=== PATIENT | male | born 1980 | race Caucasian/White ===

== ENCOUNTER 2016-09-26 09:40 | Inpatient (IN) | payer OTHER ==
--- NOTE | 2016-09-26 09:59 | EDPHY ---
HPI/HX/ROS/PE/MDM Narrative: CHIEF COMPLAINT: Chest pain, auditory hallucinations HPI: This patient is a 36 year old male who presents to the Emergency Department with complaints of chronic chest pain and auditory hallucinations. His auditory hallucinations first presented one week prior to arrival. He reports that he has had voices in his head that are "microbial aliens" telling him that "all is not right in the world, and I should kill myself." It is unclear if he has taken or is currently taking medications for this complaint. The patient also describes chest pain which he states is ongoing. It appears that he may have a history of coronary artery disease with stenting as her refers to a procedure requiring catheterization through the groin. Further history regarding his chest pain and cardiac history is unobtainable secondary to his psychosis. REVIEW OF SYSTEMS: Aside from elements discussed in the HPI, a comprehensive 10-point review of systems was reviewed and is negative. PMH: Cardiac history, unspecified. Unknown mental health history. SOCIAL HISTORY: Non-contributory PHYSICAL EXAM: General:Patient is alert, in no acute distress. ENT:Eyes are normal to inspection. ENT inspection normal. Neck: Normal inspection. Full range of motion. Respiratory:No respiratory distress. Breath sounds normal bilaterally. Cardiovascular: Regular rate and rhythm. Strong peripheral pulses. Normal cap refill. Abdomen:The abdomen is obese, nontender to palpation. There are no peritoneal signs. There are normal bowel sounds. Back: Normal to inspection. No tenderness to palpation. Skin: Normal color. No rash. Warm and dry. Extremities: Normal appearance. Full range of motion. Neuro: Oriented x3. Normal motor function. Normal sensory function. Psych: Responding to internal stimuli. (Cheko Gutierrez) ED Course: EKG INTERPRETATION: Three EKGs were ordered and interpreted by myself. Please see [employer] system for official reading. There are no old EKGs available for comparison. ED COURSE: This is a 36-year-old male with unclear cardiac history and unclear mental health history who presents with complaints of auditory hallucinations and increasing chest pain over the past few days. He provides an inconsistent and unclear history secondary to his psychosis; he is responding to internal stimuli while examined. Will proceed with EKG, chest x-ray, labs including troponin for med clear prior to proceeding to treat mental health concerns. I attempted to access records from [facility] where the patient allegedly was seen recently for cardiac complaints. The patient is unwilling to release these records at this time. Labs obtained. Troponin is elevated at 0.496. Repeat EKG ordered. Repeat EKG continues to show no ST/T elevations. 1143: I discussed the case with Carol from [facility]. 1149: Consultation with Dr. Sebastián Guerra, analytical sciences director with [facility], who recommends a repeat troponin and further observation. The patient has agreed to release his records from [facility]. We are awaiting the faxed records. 1240: Repeat troponin is elevated at 0.741. [facility] has been paged. Will proceed with third repeat EKG. 1246: I discussed the repeat troponin levels with Carol from [facility] who will discuss next steps with Dr. Guerra. 1300: Consultation with Dr. Sebastián Guerra, cardiology. We are continuing to await faxed medical records from [facility]. 1315: Medical records obtained from [facility]. The patient was seen in the [facility] Emergency Department on 09/23 and was admitted and assessed prior to discharge on 09/24. His troponin remained stable throughout his admission at 0.04. He was also complaining of suicidal ideation at that time. Additional medical history obtained: Bipolar disorder, diabetes type II, morbid obesity, CAD with stenting x2. [facility] was unable to obtain his medical records from [place]. Additional social history obtained: Recently moved from [place] on 09/20. Currently homeless. 1333: Dr. Sebastián Guerra at bedside. 1350: Following bedside examination, Dr. Guerra recommends that we proceed with echocardiography. (Cheko Gutierrez) MDM: This patient presents with psychosis, with additional complaint of chest pain. His troponin was surprisingly positive and was rapid cycled. The patient has been evaluated by Dr. Guerra - he does not want to take the patient to the mobile home laborer at this point or admit him. At this point I do not think the patient is medically clear. I have signed the patient out to Dr. Devlin pending Echo and cardiology decision. (Cheko Gutierrez) 4:30 p.m. I spoke with Dr. Sebastián Guerra who has evaluated the patient's echocardiogram. 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 He recommends we admit the patient to the hospitalist service and complete a stress Lexiscan in the morning. The patient is currently refusing any invasive treatment. His EKG is unchanged from yesterday at [facility]. His troponins there yesterday were 0.4 x 2. Spoke to the hospital service will admit. (Aidan Devlin) - Data Points Imaging Results: Imaging Impressions Chest X-Ray 09/26/16 09:56 Impression: 1. Hypoventilatory chest with peribronchial thickening that could be related to fluid overload or bronchitis. 2. Anterior reduction at T12, possibly congenital or posttraumatic (age indeterminate). Laboratory Results: Laboratory Results 09/26/16 10:00 09/26/16 10:00 09/26/16 09/26/16 09/26/16 11:58 10:00 10:00 WBC 10.59 10^3/uL H 10^3/uL (3.80-9.50) RBC 5.33 10^6/uL 10^6/uL (4.40-6.38) Hgb 16.4 g/dL g/dL (13.7-17.5) Hct 46.4 % % (40.0-51.0) MCV 87.1 fL fL (81.5-99.8) MCH 30.8 pg pg (27.9-34.1) MCHC 35.3 g/dL g/dL (32.4-36.7) RDW 12.7 % % (11.5-15.2) Plt Count 228 10^3/uL 10^3/uL (150-400) MPV 10.2 fL fL (8.7-11.7) Neut % (Auto) 63.0 % % (39.3-74.2) Lymph % (Auto) 28.6 % % (15.0-45.0) [place] % (Auto) 6.4 % % (4.5-13.0) Eos % (Auto) 0.9 % % (0.6-7.6) Baso % (Auto) 0.8 % % (0.3-1.7) Nucleat RBC Rel Count 0.0 % % (0.0-0.2) Absolute Neuts (auto) 6.66 10^3/uL H 10^3/uL (1.70-6.50) Absolute Lymphs (auto) 3.03 10^3/uL H 10^3/uL (1.00-3.00) Absolute Monos (auto) 0.68 10^3/uL 10^3/uL (0.30-0.80) Absolute Eos (auto) 0.10 10^3/uL 10^3/uL (0.03-0.40) Absolute Basos (auto) 0.09 10^3/uL 10^3/uL (0.02-0.10) Absolute Nucleated RBC 0.00 10^3/uL 10^3/uL (0-0.01) Immature Gran % 0.3 % % (0.0-1.1) Immature Gran # 0.03 10^3/uL 10^3/uL (0.00-0.10) Sodium 140 mEq/L mEq/L (134-144) Potassium 4.2 mEq/L mEq/L (3.5-5.2) Chloride 106 mEq/L mEq/L (97-110) Carbon Dioxide 21 mEq/l L mEq/l (22-31) Anion Gap 13 mEq/L mEq/L (8-16) BUN 13 mg/dL mg/dL (7-23) Creatinine 0.7 mg/dL mg/dL (0.7-1.3) Estimated GFR > 60 Glucose 261 mg/dL H mg/dL (70-100) Calcium 9.4 mg/dL mg/dL (8.5-10.4) Troponin I 0.741 ng/mL H ng/mL 0.490 ng/mL H ng/mL (0-0.034) (0-0.034) Medications Given: Discontinued Medications Perflutren Lipid Microsphere (Definity) 1.1 mg IV ONCALL ONE Stop: 09/26/16 14:46 Last Admin: 09/26/16 15:03 Dose: 1.1 mg General Time Seen by Provider: 09/26/16 09:54 Initial Vital Signs: Initial Vital Signs Temperature (C) 36.6 C 09/26/16 09:47 Heart Rate 104 H 09/26/16 09:47 Respiratory Rate 18 09/26/16 09:47 Blood Pressure 136/88 H 09/26/16 09:47 O2 Sat (%) 97 09/26/16 09:47 O2 Delivery Mode Nasal Cannula O2 (L/minute) 2 Allergies/Adverse Reactions: haloperidol [From Haldol] Allergy (Intermediate, Verified 09/26/16 09:46) spasms,projectile vomiting Sulfa (Sulfonamide Antibiotics) Allergy (Intermediate, Verified 09/26/16 09:46) Hives Home Medications: Medication Instructions Recorded NK [No Known Home Meds] 09/26/16 Departure - Departure Disposition: [facility] Acute Clinical Impression: Acute psychosis Chest pain Qualifiers: Chest pain type: unspecified Qualified Code(s): R07.9 - Chest pain, unspecified Condition: Fair Referrals: NONE *PRIMARY CARE P,. [Primary Care Provider] - As per Instructions Report Scribed for: Cheko Gutierrez Report Scribed by: Margo Gill Date of Report: 09/26/16 Time of Report: 09:59 Physician Review and Approval Statement: Portions of this note were transcribed by an ED scribe. I personally performed the history, physical exam, and medical decision making; and confirm the accuracy of the information in the transcribed note.
[2016-09-26 10:17] LABS: % IMMATURE GRANULYOCYTES 0.3 % (0.0-1.1); ABSOLUTE IMMATURE GRANULOCYTES 0.03 10^3/uL (0.00-0.10); ADD DIFF? NO; ADD MORPH? NO; ADD SCAN? NO; ATYPICAL LYMPHOCYTE FLAG 10 (0-99); FRAGMENT RBC FLAG 10 (0-99); HEMATOCRIT 46.4 % (40.0-51.0); HEMOGLOBIN 16.4 g/dL (13.7-17.5); LEFT SHIFT FLG 0 (0-99); LIPEMIA HEMOLYSIS FLAG 90 (0-99); MEAN CELL HEMOGLOBIN 30.8 pg (27.9-34.1); MEAN CELL HEMOGLOBIN CONCENTR. 35.3 g/dL (32.4-36.7); MEAN CELL VOLUME 87.1 fL (81.5-99.8); MEAN PLATELET VOLUME 10.2 fL (8.7-11.7); PLATELET CLUMPS FLAG 10 (0-99); PLATELET COUNT 228 10^3/uL (150-400); RED BLOOD CELL COUNT 5.33 10^6/uL (4.40-6.38); RED CELL DISTRIBUTION WIDTH 12.7 % (11.5-15.2)
[2016-09-26 10:35] LABS: ANION GAP 13 mEq/L (8-16); CALCIUM 9.4 mg/dL (8.5-10.4); CARBON DIOXIDE 21 mEq/l (22-31); CHLORIDE 106 mEq/L (97-110); CREATININE 0.7 mg/dL (0.7-1.3); GLOMERULAR FILTRATION RATE > 60; GLUCOSE 261 mg/dL (70-100); POTASSIUM 4.2 mEq/L (3.5-5.2); SODIUM 140 mEq/L (134-144)
--- NOTE | 2016-09-26 12:12 | CPEKG ---
Heart Rate: 98 RR Interval: 612 P-R Interval: 180 QRSD Interval: 96 QT Interval: 352 QTC Interval: 450 P [place]: 56 QRS [place]: 49 T Wave [place]: 86 EKG Severity - ABNORMAL ECG - EKG Impression: SINUS RHYTHM EKG Impression: ANTERIOR INFARCT, POSSIBLY ACUTE Electronically Signed By: Cheko Gutierrez 26-Sep-2016 15:15:39
--- NOTE | 2016-09-26 12:14 | CPEKG ---
Heart Rate: 89 RR Interval: 674 P-R Interval: 176 QRSD Interval: 94 QT Interval: 356 QTC Interval: 434 P [place]: 55 QRS [place]: 72 T Wave [place]: 95 EKG Severity - ABNORMAL ECG - EKG Impression: SINUS RHYTHM EKG Impression: ANTERIOR INFARCT, POSSIBLY ACUTE Electronically Signed By: Cheko Gutierrez 26-Sep-2016 15:14:50
--- NOTE | 2016-09-26 12:53 | CPEKG ---
Heart Rate: 97 RR Interval: 619 P-R Interval: 176 QRSD Interval: 98 QT Interval: 352 QTC Interval: 447 P [place]: 72 QRS [place]: 52 T Wave [place]: 89 EKG Severity - ABNORMAL ECG - EKG Impression: SINUS RHYTHM EKG Impression: ANTERIOR INFARCT, AGE INDETERMINATE Electronically Signed By: Cheko Gutierrez 26-Sep-2016 15:13:25
--- NOTE | 2016-09-26 14:07 | PDCONSULT ---
[employer] Checker Note: HPI: Lawson is a 36 year old man who presents to the emergency department complaining of chest discomfort and suicidal ideation. The patient notes the chest discomfort often occurs at rest and is worse with exertion. He was recently evaluated at [facility] with similar symptoms. A 12-lead EKG was performed at that time and appears unchanged compared to the 12-lead performed today. The patient had elevated troponin at that time as well at 0.04 ng/mL. He did not undergo cardiac catheterization. The patient reports he has undergone cardiac cath in the past and has received stents in [place]. He recently came to [place] to work on his mental health; however, he was feeling rather poor today and his mental health has declined. He reports feeling suicidal and angry. He continues to experience chest discomfort. He did not want to discuss his current mental health status or psychiatric medications with me today. ROS: Negative except as noted in the HPI. Physical Exam: General: Patient is alert, in no acute distress. ENT: Eyes are normal to inspection. Neck: Normal inspection. Full range of motion. Respiratory: No respiratory distress. Breath sounds normal bilaterally. Cardiovascular: Regular rate and rhythm. Abdomen: The abdomen is obese, nontender to palpation. There are no peritoneal signs. There are normal bowel sounds. Back: Normal to inspection. No tenderness to palpation. Skin: Normal color. No rash. Warm and dry. Extremities: Normal appearance. Full range of motion. Neuro: Oriented x3. Echocardiogram: There is an inferoapical aneurysm with systolic LV dysfunction and reduced ejection fraction, which is what is suggested by his EKG. Assessment: 1. Chest discomfort with elevated troponin peak at 0.79 ng/mL today. The patient 's resting EKG is abnormal suggestive of anterior infarct. I have ordered an echo to examine his segmental wall motion and ejection fraction. We expect anterior wall motion abnormalities. The patient is also willing to undergo adenosine nuclear stress test. 2. Suicidal ideation. The patient should have further psychiatric evaluation. I would be concerned with taking this patient to the label rewinder. He would need general anesthesia if this is necessary. Plan: The patient should be admitted for observation with planned adenosine nuclear stress test tomorrow.
[2016-09-26] MEDS ORDERED: PERFLUTREN LIPID MICROSPHERES 1.1 MG/ML VIAL IV ONE (14:45)
--- NOTE | 2016-09-26 17:32 | ECHO ---
[id number] + + [address] : : [place] [address] : : [phone] + + Adult Echocardiographic Report + -------+ :Name: TRISTON CHAUHAN MStudy Date: 09/26/2016 02:18 PM : : Hospital Admission Number: [id number] Locat ion: ER: :: 1980 Gender: Male Height: 75 in : :Age: 36 yrs Race: WH Weight: 290 l b : :Reason For Study: CHEST PAIN : : BSA: 2.6 mete rs2 : :History: MS : + -------+ MMode/2D Measurements \T\ Calculations IVSd: 1.4 cm LVIDd: 5.8 cm FS: 15.5 % Ao root diam: LVPWd: 1.2 cm LVIDs: 4.9 cm EDV(Teich): 3.4 cm 165.9 ml ESV(Teich): 112.3 ml EF(Teich): 32.3 % LVLd ap4: 10.4 cm SV(MOD-sp4): EDV(MOD-sp4): 63.0 ml 211.0 ml LVLs ap4: 9.6 cm ESV(MOD-sp4): 148.0 ml EF(MOD-sp4): 29.9 % Normal Measurement Values: + + :LVIDd (3.5-5.7cm) IVSd (0.6-1.1cm) LVPWd (0.6-1.1cm) Aortic Root (2.0-3.7cm)Left Atrium (1.5-4.0cm): :LV Vol(d) (76-115ml) LV Vol(s) (29-48ml) Ejec Fraction (50-65%)PV Mitch (0.6- 1.2m/s) TV Mitch (0.4-1.0m/s) : :MV E Mitch (0.8-1.0m/s)MV A Mitch (0.3-1.0m/s)LVOT Mitch (0.7-1.2m/s) Asc Ao Mitch ( 0.9-1.8m/s) : + + Doppler Measurements \T\ Calculations MV E max mitch: Ao V2 max: LV V1 max: PA V2 max: 69.1 cm/sec 101.0 cm/sec 75.0 cm/sec 117.0 cm/sec MV A max mitch: Ao max P.1 mmHgLV V1 max PG: PA max P.5 mmHg 69.6 cm/sec 2.3 mmHg MV E/A: 0.99 MV dec time: 0.14 sec Left Ventricle The left ventricle is mildly dilated. There is normal left ventricular wall thickness. Left ventricular systolic function is moderately reduced. Ejection Fraction = 35%. Mid anteroseptal endocardium is thin and brightened consistent with old MS. Apical hypokinesis noted. Apical inferior aneurysm noted. Right Ventricle The right ventricle is normal in size and function. Atria The left atrial size is normal. Right atrial size is normal. Mitral Valve The mitral valve is normal in structure and function. There is no mitral valve stenosis. There is mild to moderate mitral regurgitation. Tricuspid Valve The tricuspid valve is normal in structure and function. There is no tricuspid stenosis. No tricuspid regurgitation. Aortic Valve The aortic valve is trileaflet. There is no aortic stenosis. There is no aortic insufficiency. Pulmonic Valve The pulmonic valve is not well visualized. Great Vessels The aortic root is normal size. Pericardium/Pleural There is no pericardial effusion. Conclusion A two-dimensional transthoracic echocardiogram with M-mode and Doppler was performed. 0.165MG DEFINITY USED. The study was technically difficult. A two-dimensional transthoracic echocardiogram with M-mode and Doppler was performed. The left ventricle is mildly dilated. Left ventricular systolic function is moderately reduced. Ejection Fraction = 35%. Mid anteroseptal endocardium is thin and brightened consistent with old MS. Apical hypokinesis noted. Apical inferior aneurysm noted. There is mild to moderate mitral regurgitation. No prior echo Final Reading Physician: Dr Marcela Drake electronically signed on 09/26/2016 05:31 PM Ordering Physician: Cheko Gutierrez Performed By: Kait Menjivar
[2016-09-26] MEDS ORDERED: PROMETHAZINE HCL 25 MG TAB PO PRN (18:40)
[2016-09-26] MEDS ORDERED: ONDANSETRON 4 MG/2 ML VIAL IVP PRN (18:40)
[2016-09-26] MEDS ORDERED: ACETAMINOPHEN 325 MG TAB PO PRN (18:40)
[2016-09-26] MEDS ORDERED: ONDANSETRON DISINTEGRATING 4 MG TAB PO PRN (18:40)
--- NOTE | 2016-09-26 18:52 | PDGENHP ---
History and Physical - Chief Complaint Acute on chronic chest pain - History of Present Illness PCP: None HPI: 36-year-old male presenting with acute chest pain characterized as stabbing clenching pain located in his mid anterior chest with associated anxiety, frustration, suicidal ideation, auditory hallucinations, lower extremity edema and pain located in his right foot. He reports the onset of the pain is several months ago and duration has been intermittent thereafter. It is exacerbated with physical activity but is also present at rest. He denies any significant shortness of breath but he reports that he does feel somewhat winded when his anger escalates. He reports that the reason he sought medical attention today was because his suicidal ideation and anger has been worsening and he would like mental health help. He reports that he relocated here from [place] on September 20 in an attempt to alleviate some of his mental health issues. He has since been at [facility] where his troponin was 0.04 and his EKG was similar to the 1 on this presentation. He did not receive cardiac intervention and he reports that he did not appreciate their bedside manner. History Information - Allergies/Home Medication List Allergies/Adverse Reactions: haloperidol [From Haldol] Allergy (Intermediate, Verified 09/26/16 09:46) spasms,projectile vomiting Sulfa (Sulfonamide Antibiotics) Allergy (Intermediate, Verified 09/26/16 09:46) Hives Home Medications: NK [No Known Home Meds] 09/26/16 [Last Taken Unknown] I have personally reviewed and updated: family history, medical history, social history, surgical history - Past Medical History coronary artery disease ( reports cardiac stent in 2013, was on combination aspirin and Plavix for 6 months, is not currently taking any medications), diabetes type 2 ( Currently not any medication) Additional medical history: obesity. Mental health issues but patient will not further elaborate - Surgical History Additional surgical history: cardiac catheterization 2013 - Family History Additional family history: patient reports that his mother may have had cardiac issues but he is adopted and does not maintain contact with his biological parents - Social History Smoking Status: Current every day smoker Alcohol Use: Occasionally Drug Use: Marijuana ( recently) Additional social history: originally from [place], patient reports he relocated on September 20 Review of Systems ROS: 10pt was reviewed & negative except for what was stated in HPI & below Cardiac: Reports: chest pain Skin: Reports: other ( swelling and pain on his right foot) Neurological: Reports: other ( anger auditory hallucinations suicidal ideation) Physical Exam Temp Pulse Resp BP Pulse Ox 36.6 C 89 18 132/82 H 93 09/26/16 09:47 09/26/16 17:00 09/26/16 17:00 09/26/16 17:00 09/26/16 17:00 Constitutional: not in pain, chronically ill appearing, obese, uncomfortable, unkempt Eyes: PERRL, anicteric sclera, EOMI Ears, Nose, Mouth, Throat: moist mucous membranes, hearing normal, ears appear normal, no oral mucosal ulcers Cardiovascular: tachycardia, edema ( 1+ bilateral lower extremity), No systolic murmur, No irregularly irregular Respiratory: reduced air movement ( poor inspiratory effort bilaterally), No expiratory wheeze, No inspiratory crackles, No bronchial breath sounds Gastrointestinal: normoactive bowel sounds, soft, non-tender abdomen, no palpable masses Skin: other ( mild erythema along the dorsum of his right foot with some abrasions laterally but no induration no overt tenderness) Musculoskeletal: other ( full range of motion right ankle, no joint effusion) Neurologic: AAOx3, sensation intact bilaterally Psychiatric: anxious, depressed, suicidal ideation, agitated, other ( active auditory hallucinations patient will not elaborate on what the alien voices are telling him) Lab Data & Imaging Review 09/26/16 10:00 09/26/16 10:00 WBC 10.59 10^3/uL (3.80-9.50) H 09/26/16 10:00 RBC 5.33 10^6/uL (4.40-6.38) 09/26/16 10:00 Hgb 16.4 g/dL (13.7-17.5) 09/26/16 10:00 Hct 46.4 % (40.0-51.0) 09/26/16 10:00 MCV 87.1 fL (81.5-99.8) 09/26/16 10:00 MCH 30.8 pg (27.9-34.1) 09/26/16 10:00 MCHC 35.3 g/dL (32.4-36.7) 09/26/16 10:00 RDW 12.7 % (11.5-15.2) 09/26/16 10:00 Plt Count 228 10^3/uL (150-400) 09/26/16 10:00 MPV 10.2 fL (8.7-11.7) 09/26/16 10:00 Neut % (Auto) 63.0 % (39.3-74.2) 09/26/16 10:00 Lymph % (Auto) 28.6 % (15.0-45.0) 09/26/16 10:00 [place] % (Auto) 6.4 % (4.5-13.0) 09/26/16 10:00 Eos % (Auto) 0.9 % (0.6-7.6) 09/26/16 10:00 Baso % (Auto) 0.8 % (0.3-1.7) 09/26/16 10:00 Nucleat RBC Rel Count 0.0 % (0.0-0.2) 09/26/16 10:00 Absolute Neuts (auto) 6.66 10^3/uL (1.70-6.50) H 09/26/16 10:00 Absolute Lymphs (auto) 3.03 10^3/uL (1.00-3.00) H 09/26/16 10:00 Absolute Monos (auto) 0.68 10^3/uL (0.30-0.80) 09/26/16 10:00 Absolute Eos (auto) 0.10 10^3/uL (0.03-0.40) 09/26/16 10:00 Absolute Basos (auto) 0.09 10^3/uL (0.02-0.10) 09/26/16 10:00 Absolute Nucleated RBC 0.00 10^3/uL (0-0.01) 09/26/16 10:00 Immature Gran % 0.3 % (0.0-1.1) 09/26/16 10:00 Immature Gran # 0.03 10^3/uL (0.00-0.10) 09/26/16 10:00 Sodium 140 mEq/L (134-144) 09/26/16 10:00 Potassium 4.2 mEq/L (3.5-5.2) 09/26/16 10:00 Chloride 106 mEq/L (97-110) 09/26/16 10:00 Carbon Dioxide 21 mEq/l (22-31) L 09/26/16 10:00 Anion Gap 13 mEq/L (8-16) 09/26/16 10:00 BUN 13 mg/dL (7-23) 09/26/16 10:00 Creatinine 0.7 mg/dL (0.7-1.3) 09/26/16 10:00 Estimated GFR > 60 09/26/16 10:00 Glucose 261 mg/dL (70-100) H 09/26/16 10:00 Calcium 9.4 mg/dL (8.5-10.4) 09/26/16 10:00 Troponin I 0.741 ng/mL (0-0.034) H 09/26/16 11:58 Visualized and Interpreted Chest x-ray results: Yes Chest X-Ray results: other ( peribronchial thickening but no overt effusion) Visualized and Interpreted EKG results: Yes EKG Interpretation: Positive for: other ( Q-wave in lead V1 through V4, ST elevation isolated in III) Assessment & Plan Assessment: 36-year-old male presents with acute on chronic chest pain concerning for unstable angina in the setting of reported coronary artery disease, suicidal ideation Plan: 1. Chest pain with suspected unstable angina. Acute, new problem this provider , further workup indicated. Potential etiology includes unstable angina versus stable angina versus atypical in the setting of dense mental health issues - given that his pain is occurring at rest, he is at high risk for unstable angina and has an elevated troponin of 0.7 - echocardiogram demonstrates aneurysm make left ventricle with apical area of infarction, ejection fraction 35% - Dr. Guerra has discussed patient's situation with the patient, the patient is declining cardiac catheterization at this time but he is amenable to nuclear medicine stress testing in a.m. - patient is not amenable to using systemic anticoagulation or nitrates at this time but he is amenable to aspirin, beta-josie, will initiate - monitor on telemetry - repeat cardiac enzymes 2. Suspected systolic chronic congestive heart failure. Patient does not appear to be having acute exacerbation but he does appear to be hypervolemic and is experiencing pain in his bilateral lower extremities secondary to edema, does not appear to have cellulitis - patient is amenable to receiving Lasix to facilitate volume removal - continue to monitor the lower extremities and if evidence of cellulitis does erupt, continue to monitor CBC and advised patient to take antibiotics - patient is amenable to beta-josie at this time but he will not take additional CHF medications at this time 3. Suicidal ideation. Acute, patient reports that he has chronic mental health issues but will not further elaborate, we will not currently have access to outside records but once patient develops his where he has received medical care we should order these outside records - patient is currently experiencing internal stimuli, has active suicidal ideation, placed on M1 hold - discussed with Dr. Aidan Devlin, we both agree the patient should be admitted to the intensive care unit for 1-1 care - I have requested a psychiatric consultation for tomorrow a.m., patient has requested a sleep aid and I will use Zyprexa given his dense psychiatric issues Diet. Regular Prophylaxis. Low risk patient, SCDs Code. Full next disposition. Anticipated discharge uncertain this time, anticipated length stay is greater than 48 hours warranting inpatient admission status for acute chest pain with suspected unstable angina requiring further diagnostic workup as well as risk comorbid systolic CHF and acute suicidal ideation requiring inpatient level of care
[2016-09-26] MEDS ORDERED: NICOTINE POLACRILEX 2 MG GUM B PRN (21:16)
[2016-09-26 22:32] LABS: TROPONIN I 1.21 ng/mL (0-0.034)
[2016-09-26] MEDS: CARVEDILOL 3.125 MG TAB PO SCH (22:38)
[2016-09-26] MEDS: FUROSEMIDE 40 MG/4 ML VIAL IVP SCH (22:38)
[2016-09-26] MEDS: ASPIRIN EC 325 MG TAB PO SCH (22:38)
[2016-09-26] MEDS: OLANZapine DISINTEGR 10 MG TAB PO SCH (22:39)
[2016-09-27] MEDS: LORazepam 0.5 MG TAB PO PRN ×2 (05:42→16:24)
[2016-09-27 05:55] LABS: % IMMATURE GRANULYOCYTES 0.4 % (0.0-1.1); ABSOLUTE IMMATURE GRANULOCYTES 0.03 10^3/uL (0.00-0.10); ADD DIFF? NO; ADD MORPH? NO; ADD SCAN? NO; ATYPICAL LYMPHOCYTE FLAG 0 (0-99); FRAGMENT RBC FLAG 0 (0-99); HEMATOCRIT 43.3 % (40.0-51.0); HEMOGLOBIN 15.3 g/dL (13.7-17.5); LEFT SHIFT FLG 0 (0-99); LIPEMIA HEMOLYSIS FLAG 90 (0-99); MEAN CELL HEMOGLOBIN 31.6 pg (27.9-34.1); MEAN CELL HEMOGLOBIN CONCENTR. 35.3 g/dL (32.4-36.7); MEAN CELL VOLUME 89.5 fL (81.5-99.8); MEAN PLATELET VOLUME 10.2 fL (8.7-11.7); PLATELET CLUMPS FLAG 0 (0-99); PLATELET COUNT 189 10^3/uL (150-400); RED BLOOD CELL COUNT 4.84 10^6/uL (4.40-6.38); RED CELL DISTRIBUTION WIDTH 12.9 % (11.5-15.2)
[2016-09-27 06:13] LABS: APTT 24.5 SEC (23.0-38.0); INR 1.04 (0.83-1.16); PROTIME(PATIENT) 13.5 SEC (12.0-15.0)
[2016-09-27 06:14] LABS: ALANINE AMINOTRANSFERASE 50 IU/L (21-72); ALBUMIN 3.6 g/dL (3.5-5.0); ALKALINE PHOSPHATASE 81 IU/L (38-126); ANION GAP 11 mEq/L (8-16); ASPARTATE AMINOTRANSFERASE 37 IU/L (17-59); BILIRUBIN,TOTAL 0.9 mg/dL (0.1-1.4); CALCIUM 9.1 mg/dL (8.5-10.4); CARBON DIOXIDE 23 mEq/l (22-31); CHLORIDE 105 mEq/L (97-110); CREATININE 0.7 mg/dL (0.7-1.3); GLOMERULAR FILTRATION RATE > 60; GLUCOSE 267 mg/dL (70-100); MAGNESIUM 1.6 mg/dL (1.6-2.3); POTASSIUM 4.1 mEq/L (3.5-5.2); SODIUM 139 mEq/L (134-144); TOTAL PROTEIN 6.6 g/dL (6.3-8.2)
[2016-09-27 06:25] LABS: TROPONIN I 0.987 ng/mL (0-0.034)
[2016-09-27] MEDS: CARVEDILOL 3.125 MG TAB PO SCH ×2 (10:47→18:05)
[2016-09-27] MEDS: FUROSEMIDE 40 MG/4 ML VIAL IVP SCH ×2 (10:47→21:24)
[2016-09-27] MEDS: ASPIRIN EC 325 MG TAB PO SCH (10:47)
[2016-09-27] MEDS: NICOTINE 21 MG/24 HR PATCH TD SCH (10:48)
--- NOTE | 2016-09-27 11:03 | HOSPPROG ---
Hospitalist Progress Note Assessment/Plan: 36 yo male admitted with suicidal ideation and know h/o systolic chf with possible decompensation. Patient new to me today -Acute Suicidal ideation: Patient admits to active suicide toe ideation at this time. He says it has not diminished. He is currently on an M1 hold. The psychiatric consultation is pending. - Acute decompensated systolic CHF with the EF of 10% by nuclear scan. - Peripheral edema with possible cellulitis. No signs of active cellulitis at this time though the patient reports he has had a g negative infection at that site at a hospital in [place]. I suppose it is possible this is MRSA and thus the patient is in isolation. - Past medical history: Reports stents and cardiac care in [place]. Medical records are being requested. Dr Roge SHETTY and Dr Kade Kerr. - Code status full - DVT: LMWH Subjective: reports he still has active suicidal ideation. Denies chest pain or shortness of breath orthopnea or PND. No nausea vomiting fever or cough. Objective: Vital Signs Temp Pulse Resp BP Pulse Ox 36.8 C 86 15 124/71 H 94 09/27/16 05:59 09/27/16 10:47 09/27/16 04:28 09/27/16 10:47 09/27/16 08:00 Laboratory Results 09/27/16 05:45 09/27/16 05:45 09/26/16 09/27/16 09/28/16 05:59 05:59 05:59 Intake Total 550 Output Total 1750 Balance -1200 PT 13.5 SEC (12.0-15.0) 09/27/16 05:45 INR 1.04 (0.83-1.16) 09/27/16 05:45 - Time Spent With Patient Time Spent with Patient: greater than 35 minutes Time Spent with Patient: Greater than 35 minutes spent on this patients care, greater than 50% of time spent counseling, educating, and coordinating care regarding the above mentioned plan. - Pending Discharge Pending Discharge Within 24 Hours: No Pending Discharge Within 48 Hours: Yes Pending Discharge Date: 09/29/16 Pending Discharge Time: 11:00 - Physical Exam Constitutional: no apparent distress Eyes: PERRL Ears, Nose, Mouth, Throat: moist mucous membranes Cardiovascular: regular rate and rhythym, systolic murmur Respiratory: no respiratory distress, no rales or rhonchi Gastrointestinal: normoactive bowel sounds, soft, non-tender abdomen, other ( Very overweight to obese.) Genitourinary: no bladder fullness Skin: warm Musculoskeletal: full muscle strength, other ( several linear scratch or abrasions on the right lower extremity with some areas of excoriation without active cellulitis.) Neurologic: AAOx3, CN II-XII Intact Psychiatric: interacting appropriately, other ( Admits to suicidal ideation) ICD10 Worksheet Patient Problems: Problems Problem Status Onset Chest pain Acute Acute psychosis Acute
[2016-09-27] MEDS ORDERED: REGADENOSON 0.4 MG/5 ML SYR IVP ONE (14:24)
--- NOTE | 2016-09-27 15:17 | CPR ---
[f rep st] NONINVASIVE CARDIAC PROCEDURE REPORT DATE OF PROCEDURE: 09/27/2016 PROCEDURE: Nuclear Lexiscan stress test. REASON FOR TEST: 1. New reduced ejection fraction. 2. Coronary artery disease. 3. Admit with chest discomfort. Resting EKG shows a sinus rhythm with a rate of 98. Indication of inferior infarct, age indetermina te. Voltage is low across the pericardium. Resting blood pressure is 130/84, oxygen saturation 95% . STRESS PORTION: This is a Lexiscan nuclear stress test. Lexiscan was injected rapidly followed by saline flush. Cardiolite was then injected followed by saline flush. His peak blood pressure with t est 126/82. Peak heart rate 111. He did become flushed, had a brief episode of shortness of breath and felt nausea after the infusion. There were no EKG changes. RECOVERY: He did spontaneously recover. Resting blood pressure 136/88, oxygen saturation 98%. Res ting heart rate 88. Caffeine was given which did help to relieve his symptoms of flushing and nause a. At this time he currently is stable for nuclear imaging. /[id number]/MODL
--- NOTE | 2016-09-27 16:42 | BCON ---
[f rep st] BEHAVIORAL HEALTH CONSULTATION PSYCHIATRIC CONSULTATION PATIENT IDENTIFICATION: The patient presents as a 36-year-old single white male who is unemployed, homeless, supported by [facility] for a psychiatric disability - type not precisely known; The patient reports traveling from [place] to [place] to get help with his "mental health issues." Upon arriving in [place] , patient began to experience spontaneous chest pain at rest and with activity, has known cardiovascular disease with a history of 2 stents placed within the past 2-3 years. He self-referred to the [facility] emergency room complaining of chest pain and mental health issues. He was seen in the emergency room and noted to have a significantly elevated troponin I, was sent on for admission to the ICU. CONSULTATIVE REQUEST: Psychiatry was asked to assess as he also presented with complaints of suicidal ideation, question of audio hallucinations; request made for advice on management and dispositional planning. HISTORY OF PRESENT ILLNESS: As stated, patient does have a known history for coronary artery disease and is post placement of 2 stents within the past 2-3 years. Patient also has a known chronic psychiatric syndrome, and treatment history. Per his own report, he has been on federal disability support for his psychiatric disability for a number of years. As stated above, the patient, with this reported history, traveled from [place] to [place] to receive assistance with his psychiatric concerns. Upon arrival in [place] he developed chest pain at rest, initially was seen at [facility] ED, discharged, continued to have CP complaints and self-referred to the [facility] ED. ED assessessment identified lab findings as referenced that have warranted an acute cardiovascular workup for suspicion of acute ischemic injury. Patient's troponin in the emergency room was reported as 0.48. He was admitted to the ICU for further workup. Course to date: Patient's troponin I elevated to 1.21 later on the admission day, and the last determination was reporting a value of 0.937. A CBC was unremarkable, BMP reported elevated glucose at 261 and 257. An EKG has been suggestive of inferolateral infarct age unclear. Echocardiogram reported an ejection fraction of 35%, left ventricular dysfunction, and an intraseptal aneurysm. Patient has presently just returned to his room following a nuclear Lexiscan stress test - report pending. Patient's mental status since admission has evidenced behavioral control, passive suicidal ideation, and descriptions of verbal conversations within his mind that are described as aggressive and self-denigrating in nature, raising the question of audio hallucinations. MENTAL STATUS EXAM: On direct exam the patient presents as an obese adult male , who is seen dressed in his [facility] and lying in bed. He remains in behavioral control, is calm, cooperative, and conversant. His mood is mildly irritable, affect and range mildly constricted and expression of affect mildly blunted. His thought process evidences extreme tangentiality, but no overt psychosis. He has great difficulty answering questions in a direct and precise manner. There is an element of conscious avoidance in his speech pattern. He does describe the internal verbal conversations as if another entity is talking within his mind. He does clearly locate those within his own mind. He cannot tell me what the psychiatric diagnosis is that is stated as a psychiatric disability. He does acknowledge previous inpatient hospitalizations, as well as incidents of outpatient care. He denies any outpatient care over the last 5 years. He does state he has been hospitalized more recently, but cannot tell me precisely when. He is alert and oriented x3. The patient denies suicidal ideation. He does state he is interested in receiving "neonatal social worker", and would agree to accept primary psychiatric services on an outpatient or inpatient basis. Patient at time of this contact is denying suicidal ideation, but does acknowledge passive suicidal ideation prior to admission, and a chronic history of recurrent suicidal ideation. He also states he has tried to kill himself remotely in the past by slashing his wrists, and does show me an old healed scar. IMPRESSION: The patient presents with the likelihood of a chronic psychiatric symptom and treatment career; Patient's report is vague, tangential, and too imprecise to understand in detail. He does engage with a conscious strategy of indirect communication and avoidance. I cannot rule out the presence of a primary thought disorder, but the overt evidence is lacking. Therefore, I am not able to conclude a precise diagnosis on this first contact. The patient does understand he is hospitalized because of his chest pain history, and acute findings consistent with a possible acute ischemic injury. He does have a purported history of coronary artery disease and stent placement remotely. The prescription for Zyprexa 10 mg at bedtime is noted, and I recommend that be continued currently. RECOMMENDATIONS: The patient will need to be seen in followup for diagnostic clarification and dispositional planning. I am going to request a member of the [facility] team see the patient tomorrow, and report findings directly to me for further consultative deliberation. As stated above, I recommend the patient be kept on the Zyprexa 10 mg at bedtime, as an intervention for the possible thought disorder. We will also monitor closely for closure on the acute medical workup in process to integrate his psychiatric care needs with his medical care needs. Thank you for the interesting consultation. Patient will be seen in followup as indicated. I can be called at [phone] with any questions. ADDENDUM: The patient's current clinical presentation does not represent an imminent suicide risk. The patient does not need to have one-to-one supervision because of self-harm risk. /[id number]/MODL and [id number]/MODL, 09/27/16, [address]
[2016-09-27] MEDS: OLANZapine DISINTEGR 10 MG TAB PO SCH (21:24)
[2016-09-28 05:31] LABS: ANION GAP 8 mEq/L (8-16); CALCIUM 8.7 mg/dL (8.5-10.4); CARBON DIOXIDE 25 mEq/l (22-31); CHLORIDE 103 mEq/L (97-110); CREATININE 0.7 mg/dL (0.7-1.3); GLOMERULAR FILTRATION RATE > 60; GLUCOSE 297 mg/dL (70-100); POTASSIUM 3.8 mEq/L (3.5-5.2); SODIUM 136 mEq/L (134-144)
[2016-09-28 05:38] LABS: TROPONIN I 0.575 ng/mL (0-0.034)
[2016-09-28] MEDS: CARVEDILOL 3.125 MG TAB PO SCH ×2 (09:16→17:28)
[2016-09-28] MEDS: ASPIRIN EC 325 MG TAB PO SCH (09:17)
[2016-09-28] MEDS: FUROSEMIDE 40 MG/4 ML VIAL IVP SCH (09:17)
[2016-09-28] MEDS: NICOTINE 21 MG/24 HR PATCH TD SCH (09:18)
[2016-09-28] MEDS: LORazepam 0.5 MG TAB PO PRN ×2 (12:34→20:55)
--- NOTE | 2016-09-28 14:43 | PDCARPN ---
Cardiology Progress Note Chief Complaint: chest discomfort Assessment/Plan: HPI: Lawson is a 36 year old man who presented to the emergency department complaining of chest discomfort and suicidal ideation. He reports he has undergone cardiac cath in the past and has received stents in [place]. The patient noted the chest discomfort occurred at rest and was worse with exertion. He was recently evaluated at [facility] with similar symptoms. A 12-lead EKG was performed at that time and appearED unchanged compared to the 12 -lead upon admission to the ER. The patient had minimally elevated troponin at that time as well at 0.04 ng/mL. He declined cardiac catheterization but was willing to undergo nuclear stress test. Assessment/Plan: 1. Ischemic cardiomyopathy with severely reduce ejection fraction estimated to be 35% on echo and 20% on Adenosine nuclear stress test. There was no evidence of shea-infarct ischemia on the nuke. He has not had syncope or near-syncope. We believe the echo is a more accurate interpretation of ejection fraction compared to nuclear imaging. If his ejection fraction remains above 35%, he will not be a candidate for an AICD. In his particular case, AICD implant would be problematic secondary to his psychiatric illness. In the event the device delivered therapy, it would be likely to exacerbate his underlying psychiatric condition. He should be treated with beta josie, keith inhibitor and consideration for spironolactone if he develops fluid retention. 2. Coronary artery disease s/p stent implantation. No evidence of shea-infarct ischemia on adenosine nuclear stress test. 3. Type II diabetes mellitus. 4. Psychiatric illness, unspecified. The patient has had psychiatric evaluation and is not considered imminent suicide risk. DURING OUR INTERACTION THE PATIENT ASKED IF I WOULD BE WILLING TO PRESCRIBE OPIATE ANALGESICS FOR HIS SIGNIFICANT AND ONGOING PAIN OF 5-7 OUT OF 10 IN SEVERITY. I AM NOT WILLING TO GIVE HIM OPIATE ANALGESICS. Reviewed/Discussed With: hospitalist Time Spent With Patient: 20 minutes Objective: Vital Signs (8 Hrs) Temp Pulse Resp BP Pulse Ox 09/28/16 14:00 95 16 124/81 H 97 09/28/16 12:00 36.4 C 90 18 136/76 H 96 09/28/16 10:00 89 18 137/79 H 97 09/28/16 08:00 36.6 C 90 16 131/80 H 98 Intake/Output (24 Hrs) 09/27/16 09/28/16 09/29/16 05:59 05:59 05:59 Intake Total 550 1700 Output Total 1750 3300 800 Balance -1200 -1600 -800 Intake: Oral (ml) 550 1700 Output: Urine (ml) 1750 3300 800 Urinal 1750 3300 800 Other: Weight 161.479 kg 163 kg Intake Quantity Yes Yes Sufficient Number of Voids Urinal 5 Number of Stools Urinal 1 Result Diagrams: 09/27/16 05:45 09/28/16 05:00 Cardiac Labs: Cardiac Lab Results (72 Hrs) 09/28/16 09/27/16 09/26/16 05:00 05:45 21:45 Troponin I 0.575 H 0.987 H 1.210 H - Physical Exam Constitutional: obese Eyes: PERRL, EOMI, anicteric sclera Ears, Nose, Mouth, Throat: moist mucous membranes Cardiovascular: regular rate and rhythm, systolic murmur, other (s3, s4 gallop) Respiratory: clear to auscultate bilat Gastrointestinal: normoactive bowel sounds Skin: warm, No no edema Neurologic: AAOx3 Psychiatric: cooperative, flat affect Lymph, Heme, Immunologic: no ecchymoses ICD10 Worksheet Patient Problems: Problems Problem Status Onset Acute psychosis Acute Chest pain Acute
--- NOTE | 2016-09-28 17:02 | HOSPPROG ---
Hospitalist Progress Note Assessment/Plan: 36 yo male admitted with suicidal ideation and know h/o systolic chf with possible decompensation. -Acute Suicidal ideation: Patient admits to active suicide toe ideation at this time. He says it has not diminished. psychiatric evaluation indicates that he has some psychiatric disorder although in precise type and they also indicate that he is no longer suicidal. the M1 hold will be withdrawn - Acute decompensated systolic CHF with the EF of 35% by by echocardiogram. Cardiology consult appreciated. The patient will be placed on beta blockers Solo and spironolactone. - Peripheral edema with possible cellulitis. No signs of active cellulitis at this time though the patient reports he has had a g negative infection at that site at a hospital in [place]. I suppose it is possible this is MRSA and thus the patient is in isolation. - Diabetes mellitus with hyperglycemia. We will increases SSI coverage and attempt to arrange for him to have glucose management as an outpatient. - History of MR MAHAN with MR MAHAN cultures pending. I highly doubt this man is positive for MRSA. I suspect this history is just more of his confabulation. - Past medical history: Reports stents and cardiac care in [place]. Medical records are being requested. Dr Roge SHETTY and Dr Kade Kerr. These are not available at this time. - Code status full - DVT: LMWH - Disposition: He should be discharged on 09/29. Overall this gentleman has been seen at [facility] and here with this dubious story of chest pain. He clearly has medical problems of diabetes coronary artery disease but he does not have active coronary ischemia. Thus I think he is just moving between healthcare facilities. Socially a believe he is homeless as he has just recently moved from [place] for unspecified reasons. I suggest we arrange for some outpatient follow-up, his diabetic care, placing on cardiac care as noted above and discharge him as he is currently stable both medically and psychiatrically. I have discussed this with case management and they are working on it but I believe the discharge can be accomplished on 09/29. Subjective: No specific complaints of chest pain shortness of breath. Objective: Vital Signs Temp Pulse Resp BP Pulse Ox 36.4 C 95 16 124/81 H 97 09/28/16 12:00 09/28/16 14:00 09/28/16 14:00 09/28/16 14:00 09/28/16 14:00 Laboratory Results 09/27/16 05:45 09/28/16 05:00 09/27/16 09/28/16 09/29/16 05:59 05:59 05:59 Intake Total 550 1700 Output Total 1750 3300 800 Balance -1200 -1600 -800 PT 13.5 SEC (12.0-15.0) 09/27/16 05:45 INR 1.04 (0.83-1.16) 09/27/16 05:45 - Time Spent With Patient Time Spent with Patient: greater than 35 minutes Time Spent with Patient: Greater than 35 minutes spent on this patients care, greater than 50% of time spent counseling, educating, and coordinating care regarding the above mentioned plan. - Pending Discharge Pending Discharge Within 24 Hours: Yes Pending Discharge Date: 09/29/16 Pending Discharge Time: 11:00 - Physical Exam Constitutional: no apparent distress Eyes: PERRL, anicteric sclera Ears, Nose, Mouth, Throat: moist mucous membranes, hearing normal Cardiovascular: regular rate and rhythym, no murmur, rub, or gallop Respiratory: no respiratory distress, no rales or rhonchi, clear to auscultation Gastrointestinal: normoactive bowel sounds, soft, non-tender abdomen, no palpable masses Neurologic: AAOx3, CN II-XII Intact Psychiatric: other ( He gives a rambling and some times invasive story and history. See the psychiatric consultation for further clarification.) ICD10 Worksheet Patient Problems: Problems Problem Status Onset Chest pain Acute Acute psychosis Acute
[2016-09-28] MEDS ORDERED: D50W 25 GM/50 ML SYR IVP PRN (17:03)
[2016-09-28] MEDS: SPIRONOLACTONE 25 MG TAB PO SCH (17:28)
[2016-09-28] MEDS: LISINOPRIL 10 MG TAB PO SCH (17:28)
[2016-09-28] MEDS: INSULIN LISPRO 100 UNIT/ML SC SCH (17:48)
[2016-09-28] MEDS: OLANZapine DISINTEGR 10 MG TAB PO SCH (20:55)
[2016-09-29 04:34] VITALS: RESP 18; TEMP 98.7
[2016-09-29 05:21] LABS: ANION GAP 6 mEq/L (8-16); CALCIUM 8.8 mg/dL (8.5-10.4); CARBON DIOXIDE 24 mEq/l (22-31); CHLORIDE 105 mEq/L (97-110); CREATININE 0.6 mg/dL (0.7-1.3); GLOMERULAR FILTRATION RATE > 60; GLUCOSE 254 mg/dL (70-100); POTASSIUM 4.3 mEq/L (3.5-5.2); SODIUM 135 mEq/L (134-144)
[2016-09-29] MEDS: LISINOPRIL 10 MG TAB PO SCH (08:57)
[2016-09-29] MEDS: ASPIRIN EC 325 MG TAB PO SCH (08:58)
[2016-09-29] MEDS: INSULIN LISPRO 100 UNIT/ML SC SCH ×2 (08:58→12:45)
[2016-09-29] MEDS: CARVEDILOL 3.125 MG TAB PO SCH (08:58)
[2016-09-29] MEDS: SPIRONOLACTONE 25 MG TAB PO SCH (08:58)
[2016-09-29 09:04] VITALS: BP 125/73; PULSE 90; O2SAT 97
[2016-09-29] MEDS: NICOTINE 21 MG/24 HR PATCH TD SCH (09:33)
[2016-09-29] MEDS: LORazepam 0.5 MG TAB PO PRN (10:53)
[2016-09-29 11:18] LABS: HEMOGLOBIN A1C 8.9 % (4.0-6.0)
--- NOTE | 2016-09-29 13:49 | GDS ---
[f rep st] DISCHARGE SUMMARY DISCHARGE DIAGNOSES: 1. Acute suicidal ideation. 2. Acutely decompensated systolic heart failure with an EF of 35%. 3. Controlled diabetes. 4. History of methicillin-resistant Staphylococcus aureus. 5. Coronary artery disease, status post stents. 6. Psych disorder, not otherwise specified. HISTORY OF PRESENT ILLNESS: Patient is a 36-year-old male with a history of coronary artery disease who presented to the emergency room with chest discomfort at rest that was worse with exertion, as well as suicidal ideation. He states he underwent a cardiac cath in the past and had stents placed in [place]. The patient had minimally elevated troponin at the time of admission. He declined cardiac catheterization but underwent nuclear stress test. Stress test showed global hypokinesis with decreased LV function of 20%. Old large infarct involving the left ventricular apex, inferior and septal vasquez. No reversible myocardial ischemia. HOSPITAL COURSE: 1. Acute ischemic cardiomyopathy with systolic heart failure: EF was 25% on nuclear stress test, however, was 35% on echo. No evidence of acute ischemia. Cardiology consult believes echo is more accurate in the EF than his nuclear imaging. Continue Coreg, lisinopril, and spironolactone. 2. CAD. Continue aspirin and beta-josie. 3. Controlled diabetes. Patient is not on any medications. 4. Psychiatric illness, not otherwise specified: presented with suicidal ideation. He was evaluated by [facility] and Psychiatry yesterday, who deemed that he was not a threat to himself and safe for DC. However, on day of discharge, he told me that he would kill himself with a gun. [facility] reevaluated the patient and says he is malingering as the patient has a difficult social situation and is homeless. Again, they do not think he is a threat again to himself. Will continue Zyprexa 10 mg. Provided followup information for either [facility] or [facility] for further care. DISPOSITION: Patient is stable for discharge. FOLLOWUP: 1. Cardiology. 2. Either [facility] or [facility]. /[id number]/MODL MTDD
== END 2016-09-29 13:49 | disposition home or self-care (01) | DRG 292 ==
LOC: EEVIPCON 18:40 → OBSVTOIN 18:40 → F2N 20:37
PROVIDERS: ADMIT Internal Medicine; ATTEND Internal Medicine
DX: I50.21 Acute systolic (congestive) heart failure (principal); R45.851 Suicidal ideations; I25.5 Ischemic cardiomyopathy; E11.9 Type 2 diabetes mellitus without complications; I25.10 Atherosclerotic heart disease of native coronary artery without angina pectoris; Z95.5 Presence of coronary angioplasty implant and graft; Z86.14 Personal history of Methicillin resistant Staphylococcus aureus infection; Z59.0 Homelessness
CPT/HCPCS: A9500; J1815; J2785; Q9957